=== PATIENT | male | born 1990 | race Caucasian/White ===

== ENCOUNTER 2018-07-14 13:38 | Emergency (ER) | payer SELFPAY ==
[2018-07-14] MEDS ORDERED: Adacel (T-DAP) 0.5 ML SYRINGE ONE (15:05)
== END 2018-07-14 15:10 | disposition home or self-care (01) ==
LOC: SCSER 13:38
DX: T20.24XA Burn of second degree of nose (septum), initial encounter (principal); T20.26XA Burn of second degree of forehead and cheek, initial encounter; T20.23XA Burn of second degree of chin, initial encounter; T23.202A Burn of second degree of left hand, unspecified site, initial encounter; T20.212A Burn of second degree of left ear [any part, except ear drum], initial encounter; T28.412A Burn of left ear drum, initial encounter; X08.8XXA Exposure to other specified smoke, fire and flames, initial encounter; W40.1XXA Explosion of explosive gases, initial encounter
CPT/HCPCS: 90471; 90715; 99283